=== PATIENT | male | born 1975 | race Caucasian/White ===

== ENCOUNTER 2018-04-01 20:11 | Emergency (ER) | payer OTHER ==
--- NOTE | 2018-04-01 20:44 | Emergency Department Record ---
History of Present Illness - General Chief complaint: Swelling of legs Stated complaint: SWELLING AND PAIN RT LEG, RT EAR PAIN Time Seen by Provider: 04/01/18 20:31 Source: Patient Mode of Arrival: Ambulatory Limitations: No limitations - History of Present Illness Initial comments: The patient is here due to swelling and pain to the R knee for 4 days. He has had a R knee replacement in Jun and then had multiple complications with multiple surgeries in 2016. Since he has had intermittent pain and swelling in the R knee. Now since last Thursday night 4 days ago the knee has become very swollen and painful. He denies any fever, chills, or trauma to the knee. The patient has had the knee drained for fluid buildup multiple times in the past but none recently. He is scheduled to see Dr. Ezra Hart in 3 weeks for the R knee problem. He additionally has complaints of not being able to hear out of the R ear. He denies any pain or discomfort. MD Complaint: Extremity swelling Onset/Timin -: Days(s) Location: Right, Knee History of Same: No Consistency: Constant, Getting worse Improves with: Nothing Worsens with: Palpation, Walking, Weight bearing Associated Symptoms: Denies other symptoms - Related Data Home Medications Medication Instructions Recorded Confirmed Last Taken Carbamazepine (Uknown Dose) 1 tab PO BID 04/01/18 Unknown Cyclobenzaprine HCl [Flexeril] 10 mg PO TID 04/01/18 04/01/18 Unknown Oxycodone HCl/Acetaminophen 1 tab PO BID 04/01/18 04/01/18 Unknown [Percocet 5mg/325mg] Prazosin HCl 5 mg PO QHS 04/01/18 04/01/18 Unknown Allergies Allergy/AdvReac Type Severity Reaction Status Date / Time Penicillins Allergy PT UNSURE Verified 04/01/18 20:21 OF REACTION divalproex sodium AdvReac ELEVATED Verified 04/01/18 20:21 [From Depakote] LIVER ENZYMES sulfamethoxazole AdvReac DIARRHEA Verified 04/01/18 20:21 [From Bactrim] trimethoprim [From Bactrim] AdvReac DIARRHEA Verified 04/01/18 20:21 paper tape Allergy SWELLING Uncoded 04/01/18 20:21 (GENERAL) Travel Screening - Travel/Exposure Within Last 30 Days Have you traveled within the last 30 days?: No Review of Systems Constitutional: Denies: Chills, Fever Eyes: Denies: Eye discharge ENT: Denies: Congestion Respiratory: Denies: Cough Past Medical History - SOCIAL HISTORY Smoking Status: Never smoker Alcohol Use: Rare Drug Use: None - RESPIRATORY Hx Respiratory Disorders: No - CARDIOVASCULAR Hx Cardio Disorders: No - NEURO Hx Neuro Disorders: Yes Hx Headaches: Yes (hx of migraines) - GI Hx GI Disorders: No - Hx Genitourinary Disorders: No - ENDOCRINE Hx Endocrine Disorders: No - MUSCULOSKELETAL Hx Musculoskeletal Disorders: Yes Hx Arthritis: Yes Hx Back Injury: Yes - PSYCH Hx Psych Problems: Yes Hx Anxiety: Yes - HEMATOLOGY/ONCOLOGY Hx Hematology/Oncology Disorders: No Family Medical History Any Significant Family History?: Yes Hx Cancer: Grandparents *Cancer Comment: Uncle Hx Diabetes: Mother, Grandparents Hx Heart Disease: Father, Grandparents Physical Exam - General General Appearance: Alert, Oriented x3, Cooperative, No acute distress - Head Head exam: Atraumatic, Normocephalic, Normal inspection - Eye Eye exam: Normal appearance, PERRL, EOMI - ENT ENT exam: Normal orophraynx. negative: TM's normal bilaterally (There may be a slight effusion behind the R TM. There is no obvious middle ear infection.) Ear exam: Normal external inspection. negative: Auricular hematoma, External canal tenderness Throat exam: Normal inspection. negative: Tonsillar erythema, Tonsillar exudate - Neck Neck exam: Normal inspection, Full ROM. negative: Tenderness - Extremities Extremities exam: Joint swelling (There is a large R knee effusion.). negative : Normal inspection, Full ROM (There is decreased full ROM due to mild pain and swelling. ) - Neurological Neurological exam: Alert, Normal gait. negative: Abnormal gait, Motor sensory deficit Course Vital Signs 04/01/18 20:24 Temperature 97.9 F Pulse Rate 89 Respiratory 20 Rate Blood Pressure 156/99 Pulse Ox 98 - Reevaluation(s) Reevaluation #1: I did consult with Dr. Jose Luis Adler who is [employer] consultant for Dr. Hart. I did explain the situation with him and he did give me the go ahead to aspirate the knee. Due to that I did discuss the procedure with the patient and did inform him of the risks of infection and bleeding and increased pain and he did agree to the plan. Procedure note: The R knee was prepped with betadine and the lateral knee area was anesth. with 1 cc Lido 1% with Epi. A # 18 guage needle was used to aspirate the joint on the first try. Approx. 100 mls of straw colored fluid was removed. There was no bleeding and no complications. 04/01/18 22:13 Reevaluation #2: I did discuss the elevated LFT's with the patient. He states that is chronic for him and he has had a full evaluation with his PCP for it. 04/01/18 22:35 Reevaluation #3: The WBC on the R knee fluid is 460 so it is very clear the cause is not infectious. The patient will F/U with his Orthopedic doctor CASSANDRA. 04/01/18 23:09 Medical Decision Making - Lab Data Result diagrams: 04/01/18 20:50 04/01/18 20:50 Disposition Disposition: Discharge Clinical Impression: Knee effusion, right Disposition: Home, Self-Care Condition: (2) Stable Instructions: Swollen Knee Joint (ED) Additional Instructions: Please see Dr. Hailey TRUJILLO for further evaluation of the chronic R knee issue. Please return to the ER for any worsening symptoms and keep an mario wrap on the R knee during the day. Please take your home pain medicine as needed. Forms: Patient Portal Access Time of Disposition: 23:08 Quality - Quality Measures Quality Measures: N/A - Blood Pressure Screening View Details: Yes Does Patient Have Any of the Following: No Blood Pressure Classification: Hypertensive Reading Systolic Measurement: 156 Diastolic Measurement: 99 Screening for High Blood Pressure: < First Hypertensive BP, F/U Documented > [ G8950] First Hypertensive Follow-up Interventions: Referral to alternative/primary care provider.
[2018-04-01 20:59] LABS: BASO % 0.4 % (0-6); EOS % 2.8 % (0-6); GRAN % 66.4 % (47-80); HEMOGLOBIN 13.8 gm/dl (14.0-18.0); MEAN CELL VOLUME 83.7 fl (81-97); MEAN CORPUSCULAR HEMOGLOBIN 29.6 pg (27-33); MEAN CORPUSCULAR HGB CONC 35.4 g/dl (32-36); MEAN PLATELET VOLUME 10.3 fl (7.4-10.4); MONO % 6.4 % (0-9); PLATELET COUNT 212 K/uL (130-400); RED BLOOD COUNT 4.66 M/uL (4.40-5.70); RED CELL DISTRIBUTION WIDTH 12.9 % (11.5-14.5); WHITE BLOOD COUNT W/O DIFF 6.7 K/uL (4.2-12.2)
[2018-04-01 21:08] LABS: BLOOD UREA NITROGEN 12 mg/dL (6-20); CREATININE 1.1 mg/dL (0.7-1.2); EST GLOMERULAR FILTRATION RATE > 60 mL/min
[2018-04-01 21:09] LABS: TOTAL PROTEIN 7.1 g/dL (6.6-8.7)
[2018-04-01 21:11] LABS: GLUCOSE,RANDOM 117 mg/dL (74-109)
[2018-04-01 21:13] LABS: ALBUMIN 4.7 g/dL (4.0-5.0); ALKALINE PHOSPHATASE 55 U/L (40-129); ALT/SGPT 82 U/L (<41); AST/SGOT 62 U/L (10.0-50.0); C-REACTIVE PROTEIN 0.82 mg/dL (<0.5)
[2018-04-01 21:35] LABS: ERYTHROCYTE SEDIMENTATION RATE 5 mm/hr (0-15)
[2018-04-01] MEDS ORDERED: MORPHINE SULFATE 10 MG/ML VIAL IM ONE (21:56)
[2018-04-01] MEDS ORDERED: ONDANSETRON 4 MG ODT TABLET SL ONE (21:57)
[2018-04-01 22:51] LABS: SYNOVIAL FLUID APPEARANCE CLOUDY; SYNOVIAL FLUID COLOR YELLOW; SYNOVIAL FLUID SOURCE RIGHT KNEE
[2018-04-01 23:31] LABS: SPECIMEN SOURCE RT KNEE FLUID
[2018-04-01 23:32] LABS: GRAM STAIN NO ORGANISMS SEEN
[2018-04-02 14:27] LABS: CRYSTALLOID MATERIAL Not Present
--- NOTE | 2018-04-04 20:06 | RADIOLOGY REPORT ---
EXAM: KNEE, RIGHT 3 VIEWS HISTORY: PAIN, SWELLING. TECHNIQUE: Four views of the right knee were performed. FINDINGS: Post-op surgical change in the patellofemoral compartment. There is a large joint effusion. There is soft tissue swelling. IMPRESSION: 1. LARGE SUPRAPATELLAR JOINT EFFUSION. PREPATELLAR SOFT TISSUE SWELLING. 2. MILD DEGENERATIVE CHANGE OF THE MEDIAL COMPARTMENT. JOB NUMBER: [id number] [facility]
== END 2018-04-01 23:18 | disposition home or self-care (01) ==
LOC: ER 20:11
DX: M25.461 Effusion, right knee (principal); R94.5 Abnormal results of liver function studies; H92.01 Otalgia, right ear; Z96.651 Presence of right artificial knee joint
CPT/HCPCS: 20610 ×2; 99283; 96372; 99284; 85025; 85651; 89051; 86140; 80053; 87205; 73562; J2270

== ENCOUNTER 2018-04-06 13:40 | Emergency (ER) | payer OTHER ==
--- NOTE | 2018-04-06 14:47 | Emergency Department Record ---
History of Present Illness - General Chief complaint: Pain Stated complaint: FLUID ON RT KNEE/PAINFUL Time Seen by Provider: 04/06/18 14:25 Source: Patient Mode of Arrival: Ambulatory Limitations: No limitations - History of Present Illness Initial comments: pt here for r knee swelling and pain. he has had the same in the past and had 100ml drained off [address] redmond. dr springer is his dr. he has a partial knee replacement in that knee. MD Complaint: Joint pain, Joint swelling Onset/Timin -: Days(s) Location: Right, Knee History of Same: No Severity scale (1-10): 8 Quality: Aching Consistency: Constant Improves with: Nothing Worsens with: Walking, Weight bearing Associated Symptoms: Denies other symptoms - Related Data Previous Rx's Medication Instructions Recorded Hydrocodone/Acetaminophen [Lima 1 each PO Q6HR #10 tablet 04/06/18 5-325 Tablet] Methylprednisolone [Medrol Dose 4 mg PO ASDIR #1 tab.ds.pk 04/06/18 Pack] Allergies Allergy/AdvReac Type Severity Reaction Status Date / Time Penicillins Allergy PT UNSURE Verified 04/01/18 20:21 OF REACTION divalproex sodium AdvReac ELEVATED Verified 04/01/18 20:21 [From Depakote] LIVER ENZYMES sulfamethoxazole AdvReac DIARRHEA Verified 04/01/18 20:21 [From Bactrim] trimethoprim [From Bactrim] AdvReac DIARRHEA Verified 04/01/18 20:21 paper tape Allergy SWELLING Uncoded 04/01/18 20:21 (GENERAL) Travel Screening - Travel/Exposure Within Last 30 Days Have you traveled within the last 30 days?: No Review of Systems Reviewed: No additional complaints except as noted below Constitutional: Reports: As per HPI. Denies: Chills, Fever, Malaise, Night sweats, Weakness, Weight change Eyes: Reports: As per HPI. Denies: Eye discharge, Eye pain, Photophobia, Vision change ENT: Reports: As per HPI. Denies: Congestion, Dental pain, Ear pain, Epistaxis , Hearing loss, Throat pain Respiratory: Reports: As per HPI. Denies: Cough, Dyspnea, Hemoptysis, Stridor, Wheezes Cardiovascular: Reports: As per HPI. Denies: Arrhythmia, Chest pain, Dyspnea on exertion, Edema, Murmurs, Orthopnea, Palpitations, Paroxysmal nocturnal dyspnea, Rheumatic Fever, Syncope Endocrine: Reports: As per HPI. Denies: Fatigue, Heat or cold intolerance, Polydipsia, Polyuria Gastrointestinal: Reports: As per HPI. Denies: Abdominal pain, Constipation, Diarrhea, Hematemesis, Hematochezia, Melena, Nausea, Vomiting Genitourinary: Reports: As per HPI. Denies: Dysuria, Frequency, Hematuria, Incontinence, Retention, Testicular pain, Testicular mass, Urgency Musculoskeletal: Reports: As per HPI, Joint swelling. Denies: Arthralgia, Back pain, Gout, Myalgia, Neck pain Skin: Reports: As per HPI. Denies: Bruising, Change in color, Change in hair/ nails, Lesions, Pruritus, Rash Neurological: Reports: As per HPI. Denies: Abnormal gait, Confusion, Headache, Numbness, Paresthesias, Seizure, Tingling, Tremors, Vertigo, Weakness Psychiatric: Reports: As per HPI. Denies: Anxiety, Auditory hallucinations, Depression, Homicidal thoughts, Suicidal thoughts, Visual hallucinations Hematological/Lymphatic: Reports: As per HPI. Denies: Anemia, Blood Clots, Easy bleeding, Easy bruising, Swollen glands Past Medical History - SOCIAL HISTORY Smoking Status: Never smoker - RESPIRATORY Hx Respiratory Disorders: No - CARDIOVASCULAR Hx Cardio Disorders: No - NEURO Hx Neuro Disorders: Yes Hx Headaches: Yes (hx of migraines) - GI Hx GI Disorders: No - Hx Genitourinary Disorders: No - ENDOCRINE Hx Endocrine Disorders: No - MUSCULOSKELETAL Hx Musculoskeletal Disorders: Yes Hx Arthritis: Yes Hx Back Injury: Yes - PSYCH Hx Psych Problems: Yes Hx Anxiety: Yes - HEMATOLOGY/ONCOLOGY Hx Hematology/Oncology Disorders: No Family Medical History Any Significant Family History?: Yes Hx Cancer: Grandparents *Cancer Comment: Uncle Hx Diabetes: Mother, Grandparents Hx Heart Disease: Father, Grandparents Physical Exam - General General Appearance: Alert, Oriented x3, Cooperative, Mild distress - Head Head exam: Normal inspection - Eye Eye exam: Normal appearance, PERRL, EOMI Pupils: Normal accommodation - ENT ENT exam: Normal exam, Mucous membranes moist, Normal external ear exam, Normal orophraynx Ear exam: Normal external inspection. negative: External canal tenderness Nasal Exam: Normal inspection. negative: Discharge, Sinus tenderness Mouth exam: Normal external inspection, Tongue normal Teeth exam: Normal inspection. negative: Dental caries Throat exam: Normal inspection. negative: Tonsillar erythema, Tonsillar exudate - Neck Neck exam: Normal inspection, Full ROM. negative: Tenderness - Respiratory Respiratory exam: Normal lung sounds bilaterally. negative: Respiratory distress - Cardiovascular Cardiovascular Exam: Regular rate, Normal rhythm, Normal heart sounds - GI/Abdominal GI/Abdominal exam: Soft, Normal bowel sounds. negative: Tenderness - Rectal Rectal exam: Deferred - exam: Deferred - Extremities Extremities exam: Joint swelling, Normal capillary refill, Tenderness. negative : Normal inspection, Full ROM - Back Back exam: Reports: Normal inspection, Full ROM. Denies: Muscle spasm, Rash noted, Tenderness - Neurological Neurological exam: Alert, CN II-XII intact, Normal gait, Oriented X3 - Psychiatric Psychiatric exam: Normal affect, Normal mood - Skin Skin exam: Dry, Intact, Normal color, Warm Course Vital Signs 04/06/18 13:59 Temperature 97.9 F Pulse Rate 88 Respiratory 18 Rate Blood Pressure 147/99 Pulse Ox 99 - Reevaluation(s) Reevaluation #1: 04/06/18 16:53 case was d/w dr springer who said he will see pt tomorrow. he took pts phone number. Disposition Disposition: Discharge Clinical Impression: Knee effusion, right Disposition: Home, Self-Care Condition: (1) Good Instructions: Swollen Knee Joint (ED) Additional Instructions: follow up with dr springer tomorrow. elevate leg. return sooner if worse Prescriptions: Hydrocodone/Acetaminophen [Lima 5-325 Tablet] 1 each PO Q6HR #10 tablet Methylprednisolone [Medrol Dose Pack] 4 mg PO ASDIR #1 tab.ds.pk Referrals: GIANNA SPRINGER [] - Forms: Patient Portal Access Quality - Quality Measures Quality Measures: N/A - Blood Pressure Screening Does Patient Have Any of the Following: No Blood Pressure Classification: Hypertensive Reading Systolic Measurement: 147 Diastolic Measurement: 99 Screening for High Blood Pressure: < First Hypertensive BP, F/U Documented > [ G8950] First Hypertensive Follow-up Interventions: Follow-up with rescreen GT 1 day and LT 4 weeks.
[2018-04-06] MEDS ORDERED: ONDANSETRON HCL IV 4 MG/2 ML VIAL IM ONE (16:45)
[2018-04-06] MEDS ORDERED: HYDROMORPHONE HCL 2 MG/ML VIAL IM ONE (16:45)
== END 2018-04-06 17:15 | disposition home or self-care (01) ==
LOC: ER 13:40
DX: M25.461 Effusion, right knee (principal); Z96.651 Presence of right artificial knee joint
CPT/HCPCS: 99283; 96372; 99284; J2405; J1170